=== PATIENT | female | born 1975 | race Caucasian/White ===

== ENCOUNTER 2023-07-18 09:53 | Outpatient (CLI) | payer OTHER ==
--- NOTE | 2023-07-19 10:08 | Mammography Report ---
BILATERAL DIGITAL SCREENING MAMMOGRAM 3D/2D WITH EXAGGERATED CC: 07/18/2023 CLINICAL: Routine screening. Family history of breast cancer. Comparison is made to exam dated: 02/13/2015 mammogram - [facility]. There are scattered areas of fibroglandular density in both breasts (category b / 25%-50% glandular t issue). No significant masses, calcifications, or other findings are seen in either breast. There has been no significant interval change. IMPRESSION: NEGATIVE There is no mammographic evidence of malignancy. A 1 year screening mammogram is recommended. Based on the Tyrer Cuzick model (a risk assessment model) the patients lifetime risk is 6.8% and her 10 year risk is 1.6%. According to the ACR, ACS, and NCCN guidelines, an annual breast MRI exam ely g with mammogram is recommended if the patients lifetime risk is 20% or greater. This exam was interpreted at Station ID: [id number]. NOTE: For mammograms, a report in lay terms will be sent to the patient. Approximately 15% of breast malignancies will not be visualized mammographically. In the management of a palpable breast mass, a negative mammogram must not discourage biopsy of a clinically suspicious lesion. Electronically Signed By: Mark [email or web address]:07/18/2023 18:35:45 letter sent: No_Letter ACR BI-RADS Category 1: Negative 3341F PARENCHYMAL PATTERN: (A) - The breast(s) demonstrate(s) scattered fibroglandular densities. BI-RADS CATEGORY: (1) - 1 Mammogram [id number] 1 year screening LATERALITY: (B)
== END 2023-07-18 09:54 | disposition home or self-care (01) ==
LOC: DI.S 09:53
PROVIDERS: ATTEND Nurse Practitioner Acute Care
DX: Z12.31 Encounter for screening mammogram for malignant neoplasm of breast (principal); Z80.3 Family history of malignant neoplasm of breast; R92.323 Mammographic fibroglandular density, bilateral breasts

== ENCOUNTER 2023-07-18 10:21 | Outpatient (CLI) | payer OTHER ==
[2023-07-18 14:41] LABS: BASOPHILS % (AUTO) 0.7 %; EOSINOPHILS # (AUTO) 0.4 10^3/uL (0.0-0.7); EOSINOPHILS % (AUTO) 6.6 %; HCT - HEMATOCRIT 39.9 % (37.0-47.0); HGB - HEMOGLOBIN 13.6 g/dL (12.0-16.0); LYMPHOCYTES # (AUTO) 2.6 10^3/uL (1.5-3.5); LYMPHOCYTES % (AUTO) 44.3 %; MEAN CORPUSCULAR HEMOGLOBIN 32.2 pg (27.0-31.0); MEAN CORPUSCULAR HGB CONC 34.1 g/dL (32.0-36.0); MEAN CORPUSCULAR VOLUME 94.5 fL (81.0-99.0); MONOCYTES # (AUTO) 0.4 10^3/uL (0.0-1.0); MONOCYTES % (AUTO) 6.1 %; NEUTROPHILS # (AUTO) 2.5 10^3/uL (1.5-6.6); PLT - PLATELET COUNT 300 10^3/uL (130-450); RED BLOOD COUNT 4.22 10^6/uL (4.20-5.40); RED CELL DISTRIBUTION WIDTH 11.5 % (12.0-15.0); WHITE BLOOD COUNT 5.9 x10^3/uL (4.8-10.8)
[2023-07-18 14:47] LABS: ALBUMIN 4.6 g/dL (3.2-5.5); ALKALINE PHOSPHATASE 51 IU/L (42-121); ALT ALANINE AMINOTRANSFERASE 17 IU/L (10-60); AST ASPARTATE AMINOTRANSFERASE 18 IU/L (10-42); BILIRUBIN,TOTAL 0.7 mg/dL (0.2-1.0); BUN - BLOOD UREA NITROGEN 17 mg/dL (6-20); CALCIUM 9.6 mg/dL (8.5-10.3); CARBON DIOXIDE - CO2 27 mmol/L (21-32); CHLORIDE 105 mmol/L (101-111); CHOL/HDL RATIO 2.9 (<4.4); CHOLESTEROL 211 mg/dL; CREATININE 0.9 mg/dL (0.6-1.3); GFR - MDRD 66 (>89); GLUCOSE 93 mg/dL (74-104); HDL CHOLESTEROL 73 mg/dL; LDL CHOLESTEROL,CALCULATED 97 mg/dL; LDL/HDL RATIO 1.3 (<4.4); POTASSIUM 3.9 mmol/L (3.5-4.5); SODIUM 138 mmol/L (135-145); TOTAL PROTEIN 6.9 g/dL (6.4-8.9); TRIGLYCERIDES 206 mg/dL (48-352); VLDL CHOLESTEROL 41 mg/dL
[2023-07-18 15:01] LABS: THYROID STIMULATING HORMONE 4.14 uIU/mL (0.34-5.60)
[2023-07-19 06:10] LABS: HCV AB Non Reactive (Non Reactive); HIV SCREEN 4TH GENERATION Non Reactive (Non Reactive)
== END 2023-07-18 10:22 | disposition home or self-care (01) ==
LOC: LAB.S 10:21
PROVIDERS: ATTEND Nurse Practitioner Acute Care
DX: Z11.59 Encounter for screening for other viral diseases (principal); Z11.4 Encounter for screening for human immunodeficiency virus [HIV]; Z13.228 Encounter for screening for other metabolic disorders; Z13.220 Encounter for screening for lipoid disorders; Z13.29 Encounter for screening for other suspected endocrine disorder; Z13.0 Encounter for screening for diseases of the blood and blood-forming organs and certain disorders involving the immune mechanism
CPT/HCPCS: 36415; 80053; 80061; 83721; 84443; 85025; 86803; 87389

== ENCOUNTER 2023-10-23 08:10 | Day surgery (SDC) | payer OTHER ==
[2023-10-23] MEDS: LACTATED RINGERS 1,000 ML IV ONE ×2 (07:47→11:20)
[2023-10-23] MEDS ORDERED: PROPOFOL 500 MG/50 ML 500 MG/50 ML VIAL ONE (09:08)
[2023-10-23] MEDS ORDERED: LIDOCAINE-MPF 2% 5 ML VIAL ONE (09:14)
--- NOTE | 2023-10-23 09:30 | ANESTHESIA ---
Pre-Anesthesia VS, & Labs - Diagnosis screening, dysphagia - Procedure EGD, colonoscopy Vital Signs: Temp Pulse Resp BP Pulse Ox O2 Flow Rate 36.2 C L 60 18 144/92 H 97 10/23/23 08:15 10/23/23 08:15 10/23/23 08:15 10/23/23 08:15 10/23/23 08:15 Height: 5 ft 7 in Weight (kg): 83.6 kg Body Mass Index: 28.8 BMI Classification: Overweight - NPO >8 hours - Is Patient ?: No Home Medications and Allergies Allergies/Adverse Reactions: Allergies Allergy/AdvReac Type Severity Reaction Status Date / Time amoxicillin Allergy Hives Verified 10/20/23 13:32 Penicillins Allergy Hives Verified 10/20/23 13:32 Anes History & Medical History - Anesthetic History Anesthesia Complications: reports: No previous complications Family history of Anesthesia Complications: Denies Family history of Malignant Hyperthermia: Denies - Medical History Cardiovascular: reports: None Pulmonary: reports: Pneumonia, Other Gastrointestinal: reports: None Urinary: reports: None Musculoskeletal: reports: None Endocrine/Autoimmune: reports: None Skin: reports: Other Smoking Status: Never smoker Psychosocial: reports: Alcohol (daily) History of Cancer?: No Exam General: Alert, Oriented x3, Cooperative Dental: WNL Mouth Openin Fingerbreadth Neck Mobility: Normal Mallampati classification: II Thyromental Distance: 4-6 cm Respiratory: Lungs clear Cardiovascular: Regular rate Plan Anesthesia Type: General, Total IV Consent for Procedure(s) Verified and Reviewed: Yes Code Status: Attempt Resuscitation ASA classification: 2-Mild systemic disease Is this case an emergency?: No
[2023-10-23] MEDS ORDERED: PROPOFOL 200 MG/20 ML VIAL IVP ONE (10:53)
[2023-10-23 11:40] VITALS: BP 110/72
[2023-10-23 11:49] VITALS: O2SAT 99
--- NOTE | 2023-10-23 14:37 | ANESTHESIA POST OP EVALUATION ---
Anesthesia Post Eval - Post Anesthesia Eval Vitals: Last Vital Signs Temp 36.0 C L 10/23/23 11:20 Pulse 55 L 10/23/23 11:40 Resp 18 10/23/23 11:40 BP 110/72 10/23/23 11:40 Pulse Ox 99 10/23/23 11:40 O2 Flow Rate CV Function Including HR & BP: Stable Pain Control: Satisfactory Nausea & Vomiting: Negative Mental Status: Baseline Respiratory Status: Airway Patent Hydration Status: Satisfactory Anesthesia Complications: None
== END 2023-10-23 08:11 | disposition home or self-care (01) ==
LOC: SDS 08:10
PROVIDERS: ATTEND Surgery
PROC: 0DBN8ZZ Excision of Sigmoid Colon, Via Natural or Artificial Opening Endoscopic (ICD-10-PCS; principal; 2023-10-23 09:45)
PROC: 0DB48ZX Excision of Esophagogastric Junction, Via Natural or Artificial Opening Endoscopic, Diagnostic (ICD-10-PCS; 2023-10-23 09:45)
DX: Z12.11 Encounter for screening for malignant neoplasm of colon (principal); D12.5 Benign neoplasm of sigmoid colon; K64.1 Second degree hemorrhoids; K21.9 Gastro-esophageal reflux disease without esophagitis; R13.10 Dysphagia, unspecified; K44.9 Diaphragmatic hernia without obstruction or gangrene
CPT/HCPCS: 43239; 45385; J7120